=== PATIENT | male | born 1960 | race American Indian/Alaskan Native ===

== ENCOUNTER 2016-05-31 16:45 | Inpatient (IN) | payer BC ==
[2016-05-31] MEDS ORDERED: TYLENOL PO PRN (19:09)
[2016-05-31] MEDS ORDERED: SENOKOT PO PRN (19:09)
[2016-05-31] MEDS ORDERED: ULTRAM PO PRN (19:13)
[2016-05-31] MEDS: TRENTAL PO SCH (21:51)
[2016-05-31] MEDS: RANEXA ER PO SCH (21:51)
[2016-05-31] MEDS: BIDIL 20/37.5MG PO SCH (21:51)
[2016-05-31] MEDS: ZESTRIL PO SCH (21:52)
[2016-05-31] MEDS: LOPRESSOR PO SCH (21:52)
[2016-05-31] MEDS: MS CONTIN ER PO SCH (21:53)
[2016-06-01] MEDS: NORCO 10/325 PO PRN ×2 (01:38→08:27)
[2016-06-01 04:52] LABS: Basophils % (Auto) 0.7 % (0.0-1.8); Eosinophils % (Auto) 0.8 % (0.0-4.3); Hematocrit 28.7 % (35.5-45.6); Hemoglobin 9.3 gm/dl (11.8-15.2); Mean Corpuscular HGB Conc 33 % (32-34); Mean Corpuscular Hemoglobin 28 pg (28-32); Mean Corpuscular Volume 86 fl (84-94); Platelet Count 359 K/mm3 (140-440); Red Blood Count 3.35 M/mm3 (3.65-5.03); Red Cell Distribution Width 16.8 % (13.2-15.2); White Blood Count 11.1 K/mm3 (4.5-11.0)
[2016-06-01 05:06] LABS: Alanine Aminotransferase 72 units/L (7-56); Albumin 2.3 g/dL (3.9-5); Albumin/Globulin Ratio 0.7 %; Alkaline Phosphatase 74 units/L (35-129); Bilirubin,Total 0.2 mg/dL (0.1-1.2); Blood Urea Nitrogen 18 mg/dL (9-20); Calcium 8.3 mg/dL (8.4-10.2); Carbon Dioxide 27 mmol/L (22-30); Chloride 101.9 mmol/L (98-107); Glucose 126 mg/dL (75-100); Potassium 4.6 mmol/L (3.6-5.0); Sodium 140 mmol/L (137-145); Total Protein 5.5 g/dL (6.3-8.2)
[2016-06-01 05:11] LABS: Anion Gap 16 mmol/L
[2016-06-01] MEDS: BIDIL 20/37.5MG PO SCH ×3 (06:40→21:15)
[2016-06-01] MEDS: LASIX PO SCH (06:40)
[2016-06-01] MEDS: TRENTAL PO SCH ×3 (06:58→21:14)
[2016-06-01] MEDS ORDERED: XARELTO PO SCH (08:00)
[2016-06-01] MEDS ORDERED: BABY ASPIRIN PO SCH (08:00)
[2016-06-01] MEDS: EFFIENT PO SCH (08:29)
[2016-06-01] MEDS: RANEXA ER PO SCH ×2 (08:30→21:14)
[2016-06-01] MEDS: ZESTRIL PO SCH (08:37)
[2016-06-01] MEDS: LOPRESSOR PO SCH (08:38)
[2016-06-01] MEDS: MS CONTIN ER PO SCH ×2 (09:00→21:14)
[2016-06-01] MEDS: XARELTO PO SCH (09:00)
--- NOTE | 2016-06-01 10:02 | History and Physical Report ---
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 In comparison, pt reports improved phantom pain/sensation at right residual limb. Labs reviewed; slight drop in H/H and minimal leukocytosis; will follow. Pt also with asymptomatic hypotension on this AM; BP meds held. Will consult Cardiology for med adjustments and follow BP closely. Pt reports that he has not had a bowel movement in 2 weeks; will add aggressive bowel program. Pt remains an appropriate candidate for IPR course. PREVIOUS FUNCTIONAL STATUS: Independent with ADLs, gait, transfers; occasionally utilized a cane CURRENT FUNCTIONAL STATUS: Chace for transfers; modA for toileting; Independent to supervision for remaining ADLs HPI 55 y.o. male who presented to [facility] secondary to right leg pain. Pt with recent history of removal of arterial clot in right leg 4 days prior to presentation to ED. Pt was sent for CT during initial ED work-up and became short of breath requiring BiPAP, ICU admission; noted pulmonary edema on CXR. CT angio showed occlusion of proximal left anterior tibial artery with proximal occlusion of the left peroneal artery; 60% stenosis of common femoral artery, 50 % stenosis of left popliteal artery. Pt was recommended for right AKA (05/26/2016 ) due to right arterial occlusion with dry gangrene. Acute care course notable post-op for ongoing management of respiratory failure, post-op blood loss anemia , acute on chronic systolic heart failure, CAD, hypertension. Pt was seen and evaluated by therapies and noted to have functional decline with self cares and mobility. Pt is now admitted to [facility] for aggressive therapies and ongoing medical management. Past History Past Medical History: CAD (h/o [place]), hypertension, hyperlipidemia, PVD Past Surgical History: Other (pacemaker, right AKA) Social history: Lives alone, smoking. denies: alcohol abuse Family history: diabetes, hypertension Medications and Allergies Allergies Allergy/AdvReac Type Severity Reaction Status Date / Time No Known Allergies Allergy Unverified 05/31/16 18:27 Active Meds: Active Medications Acetaminophen (Tylenol) 650 mg PO Q4H PRN PRN Reason: Pain MILD(1-3)/Fever >100.5/JOHN Acetaminophen/Hydrocodone Bitart ([place] 10/325) 1 each PO Q6H PRN PRN Reason: Pain, Moderate (4-6) Last Admin: 06/01/16 08:27 Dose: 1 each Aspirin (Baby Aspirin) 81 mg PO QDAY [facility] Last Admin: 06/01/16 08:29 Dose: 81 mg Atorvastatin Calcium (Lipitor) 20 mg PO QHS [facility] Last Admin: 05/31/16 21:51 Dose: 20 mg Furosemide (Lasix) 40 mg PO QDAY@0600 [facility] Last Admin: 06/01/16 06:40 Dose: Not Given Isosorbide Dinitrate/Hydralazine (Bidil 20/37.5mg) 1 each PO Q8HR [facility] Last Admin: 06/01/16 06:40 Dose: Not Given Lisinopril (Zestril) 40 mg PO BID [facility] Last Admin: 06/01/16 08:37 Dose: Not Given Metoprolol Tartrate (Lopressor) 25 mg PO BID [facility] Last Admin: 06/01/16 08:38 Dose: Not Given Morphine Sulfate (Ms Contin Er) 15 mg PO Q12HR [facility] Last Admin: 06/01/16 09:00 Dose: 15 mg Pentoxifylline (Trental) 400 mg PO Q8HR [facility] Last Admin: 06/01/16 06:58 Dose: 400 mg Prasugrel (Effient) 10 mg PO QDAY [facility] Last Admin: 06/01/16 08:29 Dose: 10 mg Quetiapine Fumarate (Seroquel) 300 mg PO QHS [facility] Last Admin: 05/31/16 21:51 Dose: 300 mg Ranolazine (Ranexa Er) 1,000 mg PO BID [facility] Last Admin: 06/01/16 08:30 Dose: 1,000 mg Rivaroxaban (Xarelto) 20 mg PO QDDIAB [facility] PRN Reason: Protocol Last Admin: 06/01/16 09:00 Dose: 20 mg Senna (Senokot) 8.6 mg PO Q12H PRN PRN Reason: Laxative Effect Last Admin: 05/31/16 21:51 Dose: 8.6 mg Tramadol HCl (Ultram) 50 mg PO Q6H PRN PRN Reason: Pain, Moderate (4-6) Review of Systems All systems: negative Ears, nose, mouth and throat: no headache Cardiovascular: no chest pain, no lightheadedness Respiratory: no cough, no shortness of breath Gastrointestinal: constipation, no nausea, no vomiting Genitourinary Male: no dysuria Musculoskeletal: other (post-op pain intermittent at right residual limb) Exam - Constitutional Vitals: Vital Signs - 12hr 05/31/16 06/01/16 06/01/16 22:00 06:40 08:25 Temperature 98.2 F Pulse Rate 78 Pulse Rate [ 88 Left Brachial] Respiratory 18 18 Rate Blood Pressure 80/50 Blood Pressure 90/54 [Left Arm] O2 Sat by Pulse 96 99 Oximetry 06/01/16 06/01/16 08:37 08:38 Temperature Pulse Rate 88 88 Pulse Rate [ Left Brachial] Respiratory Rate Blood Pressure 90/54 90/54 Blood Pressure [Left Arm] O2 Sat by Pulse Oximetry General appearance: no acute distress, well-nourished - EENT Eyes: EOM intact ENT: hearing intact - Neck Neck: supple, normal ROM - Respiratory Respiratory effort: normal Respiratory: bilateral: CTA - Cardiovascular Rhythm: regular Heart Sounds: Present: S1 & S2 - Extremities Extremity abnormal: other (ho to right residual limb; no active drainage; incision healing well) - Gastrointestinal General gastrointestinal: Present: soft, non-tender, non-distended, normal bowel sounds - Musculoskeletal Musculoskeletal: strength equal bilaterally (with good hip flexion at right) - Neurologic Neurologic: CNII-XII intact, moves all extremities, other (sensation grossly intact) - Psychiatric Psychiatric: appropriate mood/affect, intact judgment & insight, memory intact, cooperative - Allied health notes FIMS assesment as documented by PT/OT/ST: Grooming Patient cleans teeth/dentures: Yes Patient zaman/brushes hair: Yes Patient washes, rinses and Yes dries face: Patient washes, rinses and Yes dries hands: Patient performs (no make-up/ /4 (100%) shaving): Grooming FIM Score 6. Modified [place] Toileting Toileting Device Urinal,Commode over Toilet Toileting FIM Score 3. Moderate Assistance Social interaction/Memory/Problem solving Social Interaction FIM Score 7. Complete [place] Memory FIM Score 6. Modified [place] Problem Solving FIM Score 6. Modified [place] Transfers Mode of Locomotion: Wheelchair Bed/Chair/Wheelchair Transfers 4. Minimal Assistance FIM Score Toilet Transfers FIM Score 4. Minimal Assistance Patient transferred to: Shower Shower Transfers FIM Score 4. Minimal Assistance Eating Eating FIM Score 7. Complete [place] Dressing-Upper body Patient retrieves clothing No items: Upper Body Dressing FIM Score 5. Supervision Dressing-lower body Patient retrieves clothing No items: Lower Body Dressing FIM Score 4. Minimal Assistance - Labs CBC & Chem 7: 06/01/16 04:43 06/01/16 04:43 Labs: Laboratory Results - last 72 hr 06/01/16 06/01/16 04:43 04:43 WBC 11.1 H RBC 3.35 L Hgb 9.3 L Hct 28.7 L MCV 86 MCH 28 MCHC 33 RDW 16.8 H Plt Count 359 Lymph % (Auto) 14.6 [place] % (Auto) 6.4 Eos % (Auto) 0.8 Baso % (Auto) 0.7 Lymph # 1.6 [place] # 0.7 Eos # 0.1 Baso # 0.1 Seg Neutrophils % 77.5 H Seg Neutrophils # 8.6 H Sodium 140 Potassium 4.6 Chloride 101.9 Carbon Dioxide 27 Anion Gap 16 BUN 18 Creatinine 0.9 Estimated GFR > 60 BUN/Creatinine Ratio 20.00 Glucose 126 H Calcium 8.3 L Total Bilirubin 0.2 AST 48 H ALT 72 H Alkaline Phosphatase 74 Total Protein 5.5 L Albumin 2.3 L Albumin/Globulin Ratio 0.7 Assessment and Plan Assessment and plan: 55 y.o. male with history of PVD acute on chronic occlusion of [place] arteries, now s/p right AKA. Pt also s/p acute on chronic heart failure exacerbation. The patient is medically stable, however, requires ongoing medical management. Pt is appropriate for inpatient rehabilitation admission and is thought to be able to tolerate at least 3 hours of therapy a day, 5 days a week including 1.5 hours of physical therapy and 1.5 hours of occupational therapy. Patient is able to understand and follow basic directions and has attainable rehab goals. Potential barriers/complications include infection, wound dehiscence, falls, phantom pain, respiratory failure, syncope, hypotension, DVT, PE, depression, N/ V, ileus, bleeding. Plan 1. Rehabilitation- Pt will undergo multidisciplinary/integrative rehab PT/OT, Nursing. Areas to be addressed include, but are not limited to PT for mobility , strengthening, transfer training, ROM, endurance, stairs, balance; OT for ADLs , household tasks, adaptive equipment; Nursing for carryover of therapies, pain control, education, skin integrity, medication management, bowel/bladder management; Nutrition as needed; senior professional services consultant for discharge planning and equipment needs. Potential interventions include appropriate assistive device or adaptive equipment. Expected overall level of functional improvement by discharge is [place] for ADLs and transfers; supervision to [place] for short distances with RW; [place] for wheelchair mobility. Pt will tentatively be discharged home with outpatient PT. Estimated length of stay is 7-10 days. 2. s/p right AKA- continue wound care; wound care consult placed for general evaluation, noted mild discoloration at left inferior incision line. Will continue to monitor for phantom pain; continue current pain regimen 3. CAD/CHF- Cardiology consulted for med management/med adjustments due to hypotension on today 4. acute blood loss anemia- follow 5. leukocytosis- follow; pt remains afebrile; incision line is without any s/s of infection; recheck labs later in week 6. DVT px- on Xarelto per Vascular - Patient Problems (1) History of right above knee amputation Current Visit: Yes Status: Acute (2) Peripheral vascular occlusive disease Current Visit: Yes Status: Acute (3) CAD (coronary artery disease) Current Visit: Yes Status: Acute Qualifiers: Coronary Disease-Associated Artery/Lesion type: tun[place]-bil[place] artery [place] vs. transplanted heart: [place]-bil[place] heart Associated angina: with stable angina Qualified Code(s): I25.118 - Atherosclerotic heart disease of [place]bil[place] coronary artery with other forms of angina pectoris (4) Systolic heart failure Current Visit: Yes Status: Acute Qualifiers: Heart failure chronicity: acute on chronic Qualified Code(s): I50.23 - Acute on chronic systolic (congestive) heart failure (5) Acute blood loss anemia Current Visit: Yes Status: Acute
[2016-06-01] MEDS: COLACE PO SCH ×2 (12:59→21:14)
--- NOTE | 2016-06-01 16:02 | Consultation ---
Addendum entered and electronically signed by ROMAN SOTO MD 06/01/16 19:21 : The patient is a 55-year-old man is in the rehabilitation unit following right above-knee amputation at another hospital. Consultation is requested at this time for further evaluation of low normal blood pressure readings of 90 systolic. On his medical regimen, he is lisinopril at doses of 40 mg twice a day, isosorbide hydralazine combination, and metoprolol. In addition to his vascular disease, he has coronary artery artery disease and a severe ischemic cardiomyopathy. Recent echocardiogram at the previous hospital reported a left ventricular ejection fraction 10-15%. He has an indwelling cardiac defibrillator, but we do not have details of any prior ischemic cardiac workup or coronary artery disease revascularization. He, he is awake and alert, comfortably his room, no cardiac symptoms, no chest pain, no shortness of breath palpitations and no extremity edema. Recommendations: Will reduce lisinopril dose to 5 mg daily. Continue isosorbide and hydralazine combination current doses. Switch metoprolol to carvedilol for cardiomyopathy treatment. Otherwise, conservative cardiac management of his coronary artery disease, cardiomyopathy and chronic systolic heart failure. Original Note: History of Present Illness Consult date: 06/01/16 Consult reason: congestive heart failure, hypotension History of present illness: This is a 55yr old male with has a history of PVD and was seen at [facility] right leg pain. Ultimately the patient was recommended for right AKA due to right arterial occlusion with dry gangrene. He is on xarelto for anticoagulation. Patient is now admitted for inpatient rehab for aggressive management. Cardiac consultation requested for CHF and asymptomatic hypotension. Noted to be on several BP lowering medications. Patient reports a history of CHF and is followed by a traffic recorder in [facility]. There is also an AICD in place. It is unclear if there is a history of coronary disease as the patient is reluctant to give additional medical history. Review of records shows a recent echocardiogram done at [place] that reports an ejection fraction 10-15%. There is no ECG available for review. Past History Past Medical History: CAD (h/o [place]), hypertension, hyperlipidemia, PVD Past Surgical History: Other (pacemaker, right AKA) Social history: Lives alone, smoking. denies: alcohol abuse Family history: diabetes, hypertension Medications and Allergies Allergies Allergy/AdvReac Type Severity Reaction Status Date / Time No Known Allergies Allergy Unverified 05/31/16 18:27 Active Meds: Active Medications Acetaminophen (Tylenol) 650 mg PO Q4H PRN PRN Reason: Pain MILD(1-3)/Fever >100.5/JOHN Acetaminophen/Hydrocodone Bitart ([place] 10/325) 1 each PO Q6H PRN PRN Reason: Pain, Moderate (4-6) Last Admin: 06/01/16 08:27 Dose: 1 each Aspirin (Baby Aspirin) 81 mg PO QDAY [facility] Last Admin: 06/01/16 08:29 Dose: 81 mg Atorvastatin Calcium (Lipitor) 20 mg PO QHS [facility] Last Admin: 05/31/16 21:51 Dose: 20 mg Docusate Sodium (Colace) 100 mg PO BID [facility] Last Admin: 06/01/16 12:59 Dose: 100 mg Furosemide (Lasix) 40 mg PO QDAY@0600 [facility] Last Admin: 06/01/16 06:40 Dose: Not Given Isosorbide Dinitrate/Hydralazine (Bidil 20/37.5mg) 1 each PO Q8HR [facility] Last Admin: 06/01/16 12:59 Dose: Not Given Lisinopril (Zestril) 40 mg PO BID [facility] Last Admin: 06/01/16 08:37 Dose: Not Given Metoprolol Tartrate (Lopressor) 25 mg PO BID [facility] Last Admin: 06/01/16 08:38 Dose: Not Given Morphine Sulfate (Ms Contin Er) 15 mg PO Q12HR [facility] Last Admin: 06/01/16 09:00 Dose: 15 mg Pentoxifylline (Trental) 400 mg PO Q8HR [facility] Last Admin: 06/01/16 13:03 Dose: 400 mg Prasugrel (Effient) 10 mg PO QDAY [facility] Last Admin: 06/01/16 08:29 Dose: 10 mg Quetiapine Fumarate (Seroquel) 300 mg PO QHS [facility] Last Admin: 05/31/16 21:51 Dose: 300 mg Ranolazine (Ranexa Er) 1,000 mg PO BID [facility] Last Admin: 06/01/16 08:30 Dose: 1,000 mg Rivaroxaban (Xarelto) 20 mg PO QDDIAB [facility] PRN Reason: Protocol Last Admin: 06/01/16 09:00 Dose: 20 mg Senna (Senokot) 8.6 mg PO QHS [facility] Tramadol HCl (Ultram) 50 mg PO Q6H PRN PRN Reason: Pain, Moderate (4-6) Physical Examination Vital Signs Temp Pulse Resp BP Pulse Ox 97.4 F L 66 18 121/71 98 05/31/16 17:43 05/31/16 17:43 05/31/16 17:43 05/31/16 17:43 05/31/16 17:43 General appearance: no acute distress HEENT: Positive: PERRL Neck: Positive: trachea midline Cardiac: Positive: Reg Rate and Rhythm Lungs: Positive: Decreased Breath Sounds Results 06/01/16 04:43 06/01/16 04:43 Cardiac Enzymes 06/01/16 Range/Units 04:43 AST 48 H (5-40) units/L CBC 06/01/16 Range/Units 04:43 WBC 11.1 H (4.5-11.0) K/mm3 RBC 3.35 L (3.65-5.03) M/mm3 Hgb 9.3 L (11.8-15.2) gm/dl Hct 28.7 L (35.5-45.6) % Plt Count 359 (140-440) K/mm3 Lymph # 1.6 (1.2-5.4) K/mm3 [place] # 0.7 (0.0-0.8) K/mm3 Eos # 0.1 (0.0-0.4) K/mm3 Baso # 0.1 (0.0-0.1) K/mm3 Comprehensive Metabolic Panel 06/01/16 Range/Units 04:43 Sodium 140 (137-145) mmol/L Potassium 4.6 (3.6-5.0) mmol/L Chloride 101.9 (98-107) mmol/L Carbon Dioxide 27 (22-30) mmol/L BUN 18 (9-20) mg/dL Creatinine 0.9 (0.8-1.5) mg/dL Glucose 126 H (75-100) mg/dL Calcium 8.3 L (8.4-10.2) mg/dL AST 48 H (5-40) units/L ALT 72 H (7-56) units/L Alkaline Phosphatase 74 (35-129) units/L Total Protein 5.5 L (6.3-8.2) g/dL Albumin 2.3 L (3.9-5) g/dL EKG interpretations - Telemetry EKG Rhythm: Sinus Rhythm Assessment and Plan PVD s/p right AKA on xarelto Hypotension, pt asymptomatic Hx of Cardiomyopathy Presence of an AICD
[2016-06-01] MEDS: SENOKOT PO SCH (20:30)
[2016-06-01] MEDS: COREG PO SCH (21:15)
[2016-06-02] MEDS: TRENTAL PO SCH ×3 (05:32→21:14)
[2016-06-02] MEDS: LASIX PO SCH (05:32)
[2016-06-02] MEDS: NORCO 10/325 PO PRN ×2 (05:35→13:58)
[2016-06-02] MEDS: BIDIL 20/37.5MG PO SCH (05:46)
[2016-06-02] MEDS ORDERED: ZESTRIL PO SCH (08:00)
[2016-06-02] MEDS: XARELTO PO SCH (08:49)
[2016-06-02] MEDS: EFFIENT PO SCH (08:49)
[2016-06-02] MEDS: RANEXA ER PO SCH ×2 (08:50→21:14)
[2016-06-02] MEDS: K-DUR PO SCH (08:50)
[2016-06-02] MEDS: COLACE PO SCH ×2 (08:50→21:16)
[2016-06-02] MEDS: COREG PO SCH ×2 (08:51→21:16)
--- NOTE | 2016-06-02 09:22 | Progress Note ---
Assessment and Plan PVD s/p right AKA on xarelto Hypotension -resolved Hx of Cardiomyopathy Presence of an AICD Anemia Subjective Date of service: 06/02/16 Interval history: Patient sitting up in bed. He has no chest pain or shortness of breath. BP low normal at 102/68; morning BP medications held by nurse. Objective Vital Signs Temp Pulse Pulse Resp BP BP Pulse Ox 06/02/16 08:51 84 102/68 06/02/16 05:46 100/60 06/01/16 21:15 90 90/60 06/01/16 19:00 98.0 F 90 20 94/60 99 06/01/16 17:55 98.1 F 85 18 84/61 98 06/01/16 12:59 90 90/54 06/01/16 10:00 99 - Physical Examination General: No Apparent Distress HEENT: Positive: PERRL Neck: Positive: trachea midline Cardiac: Positive: Reg Rate and Rhythm Lungs: Positive: Decreased Breath Sounds Extremities: Present: Other (right AKA)
[2016-06-02] MEDS: MS CONTIN ER PO SCH ×2 (09:28→21:15)
--- NOTE | 2016-06-02 13:23 | IRU Plan of Care ---
Interdisciplinary Plan of Care - IP IRU INTERDISCIPLINARY PLAN: [facility] Inpatient Rehab Unit Plan of Care IRU Interdisciplinary Care Plan Start: 05/31/16 17: 43 Freq: Admission then PRN Status: Active Document 06/01/16 15:43 DB (Rec: 06/01/16 15:49 DB [id number]) Interdisciplinary Problem List Interdisciplinary Problem List Interdisciplinary Problem List Impaired Bathing/Grooming Query Text:Answers will Trigger Problems Impaired Dressing and Outcomes on Worklist. Impaired Mobility Impaired Transfers Impaired Toileting Impaired Nutrition Pain Management Knowledge Deficits Impaired Skin/Tissue Integrity Impaired Home Management Impaired Safety Medications Education Impaired Cardiovascular System IRU Interdisciplinary Care Plan Therapy Services Therapy Services Will Include: Physical Therapy Query Text:Patient will be seen for a Occupational Therapy minimum of 3 hours of daily therapy 5 out of 7 days a week. Therapy intensity may be adjusted within a 7 consecutive day period to effectively serve the individual needs of the patient. Treatment Frequency/Intensity/Duration Treatment Frequency 5 days per week Treatment Intensity 1.5 hours per discipline (PT and OT) daily Treatment Duration 10-14 days Problem Area: Eating/Swallowing Eating/Swallowing Outcomes Eating/Swallowing Interventions Problem Area: Bathing/Grooming Bathing/Grooming Outcomes Improve [place] w/ Bathing Bathing/Grooming Interventions ADL Training Use of Assistive Devices Therapeutic Exercise Therapeutic Activity Balance Work Activity Tolerance Work Patient/Caregiver Education Problem Area: Dressing Dressing Outcomes Improve [place] w/ LB Dressing Dressing Interventions ADL Training Use of Assistive Devices Therapeutic Exercise Balance Work Patient/Caregiver Education Problem Area: Mobility Mobility Outcomes Improve [place] w/ Bed Mobility Improve [place] w/ Ambulation Improve [place] w/ Stairs /Curb Improve [place] w/ Wheelchair Mobility Interventions Therapeutic Exercise Neuromuscular Re-Ed. Modalities Use of Assistive Devices Patient/Caregiver Education Bed Mobility Work Gait Training W/C Mobility Work Problem Area: Transfers Transfers Outcomes Improve [place] w/ Bed Transfers Improve [place] w/ Toilet Transfers Improve [place] w/ Tub/ Shower Transfers Improve [place] w/ Car Transfers Transfers Interventions Transfer Training Therapeutic Exercise Neuromuscular Re-Education Activity Tolerance Work Modalities Use of Assistive Devices Patient/Caregiver Education Problem Area: Bowel/Bladder Managment Bowel/Bladder Outcomes Bowel/Bladder Interventions Problem Area: Toileting Toileting Outcomes Improve [place] w/ Toileting Toileting Interventions ADL Training Balance Work Use of Assistive Devices Patient/Caregiver Education Problem Area: Nutrition Nutrition Outcomes Improve/Maintain Protein Status Improve/Maintain Oral Intake Improve/Maintain Weight Status Nutrition Interventions Nutritional Counseling Monitor Nutrient Intake Patient/Caregiver Education Problem Area: Comprehension Comprehension Outcomes Comprehension Interventions Problem Area: Expression Expression Outcomes Expression Interventions Problem Area: Problem Solving Problem Solving Outcomes Problem Solving Interventions Problem Area: Memory Memory Outcomes Memory Interventions Problem Area: Pain Management Pain Management Outcomes Demonstrate/Verbalize Pain Strategies Pain Management Interventions Medication Management Positioning/Turning Patient/Caregiver Education Problem Area: Knowledge Deficits Knowledge Deficits Outcomes Verbalize Precautions Knowledge Deficits Interventions Disease/Injury/Sx. Intervention Education Medication Use Education Disease Management Education Health Maintainence Education Safety Education Problem Area: Skin/Tissue Integrity Skin/Tissue Integrity Outcomes Exhibit Healing of Wound/ Incision Demonstrate Understanding of Pressure Relief Skin/Tissue Integrity Interventions Skin/Wound Care Pressure Relief Instruction Problem Area: Social Interaction Social Interaction Outcomes Social Interaction Interventions Problem Area: Adjustment to Disability Adjustment to Disability Outcomes Adjustment to Disability Interventions Problem Area: Discharge Concerns Discharge Concerns Outcomes Discharge Home w/ Necessary Equipment Have Home Health/Outpatient Services Discharge Concerns Interventions Discharge Planning Family/Caregiver Conference Family/Caregiver Training Problem Area: Community Reintegration Community Reintegration Outcomes Demonstrate Understanding of Community Resources Community Reintegration Interventions Provide Community Resources Problem Area: Home Management Home Management Outcomes Improve [place] w/ Home Management Home Management Interventions Meal Preparation Clothing Care Activity Tolerance Work House Cleaning Patient/Caregiver Education Problem Area: Safety Safety Outcomes Provide Safe Environment Perform Selfcare Safely Demonstrate Good Safety w/ Transfers/Mobility Safety Interventions Identify Fall Risk [place] Pt. to Environment Reduce Environmental Hazards Problem Area: Medication Education Medication Education Outcomes Patient/Caregiver will Verbalize Understanding of Medications Medication Education Interventions Explain Administration/Side Effects/Interactions Problem Area: Diabetes Education Diabetes Education Outcomes Diabetes Education Interventions Problem Area: Oxygenation Oxygenation Outcomes Oxygenation Interventions Problem Area: Cardiovascular Cardiovascular Outcomes Maintain or Improve Cardiovascular Status Cardiovascular Interventions Assess Vital Signs at least Every 4 hours Physician Only Medical Prognosis and Rehabilitation Patient demonstrates good Potential (Completed by Physician) rehab potential. Medical Prognosis: Good This plan of care has been developed based on the findings from the pre- admission assessment, post admission physician evaluation, information gathered from the assessments from all therapy disciplines and other pertinent clinicians. The plan of care has been reviewed and discussed in collaboration with the interdisciplinary team. The plan of care will be reviewed and updated at least weekly. 55 y.o. male with history of PVD, acute on chronic occlusion of [place] arteries , now s/p right AKA; acute care course also notable for treatment for acute on chronic heart failure exacerbation. The patient remains at risk for infection, wound dehiscence, falls, phantom pain, respiratory failure, syncope, hypotension , DVT, PE, depression, N/V, ileus, bleeding. Continue aggressive bowel regimen ; will add suppository on this evening. Cardiology following and adjusting medications due to symptomatic hypotension. Will continue to follow labs ( leukocytosis and anemia); ongoing wound monitoring. Pt is tolerating therapies ; remains an appropriate candidate for IPR course.
--- NOTE | 2016-06-02 13:30 | Progress Note ---
Assessment and Plan 55 y.o. male s/p right AKA - s/p right AKA- continue wound care; stable on pain regimen - unsteady gait- Chace/CGA for ambulation with RW; some dizziness noted; follow - CAD/CHF- appreciate Cardiology consult; med changes noted; continue to follow - orthostatic hypotension- continue to follow - acute blood loss anemia- recheck labs later in week - constipation- add dulcoloax suppository; continue colace and senna - DVT px- on Xarelto per Vascular - Patient Problems (1) History of right above knee amputation Current Visit: Yes Status: Acute (2) Peripheral vascular occlusive disease Current Visit: Yes Status: Acute (3) CAD (coronary artery disease) Current Visit: Yes Status: Acute Qualifiers: Coronary Disease-Associated Artery/Lesion type: [place] artery [place] vs. transplanted heart: [place] heart Associated angina: with stable angina Qualified Code(s): I25.118 - Atherosclerotic heart disease of [place] coronary artery with other forms of angina pectoris (4) Systolic heart failure Current Visit: Yes Status: Acute Qualifiers: Heart failure chronicity: acute on chronic Qualified Code(s): I50.23 - Acute on chronic systolic (congestive) heart failure (5) Constipation by delayed colonic transit Current Visit: Yes Status: Acute Subjective Date of service: 06/02/16 Principal diagnosis: right AKA Interval history: Pt seen in room this AM, F/U IPR course s/p right AKA. Pt reports pain is well controlled; still no BM. Agrees to adding suppository Objective - Constitutional Vitals: Vital Signs - 12hr 06/02/16 06/02/16 06/02/16 05:46 08:00 08:51 Temperature 97.6 F Pulse Rate 84 Pulse Rate [ 84 Left Brachial] Respiratory 20 Rate Blood Pressure 100/60 102/68 Blood Pressure 102/68 [Left Arm] O2 Sat by Pulse 100 Oximetry General appearance: Present: no acute distress - EENT Eyes: EOM intact ENT: hearing intact - Neck Neck: supple, normal ROM - Respiratory Respiratory effort: normal Extremity abnormal: other (incision open to air, no drainage; ho remain intact) - Gastrointestinal General gastrointestinal: Present: soft, non-tender, non-distended - Neurologic Neurologic: CNII-XII intact, moves all extremities - Psychiatric Psychiatric: appropriate mood/affect, intact judgment & insight, memory intact, cooperative - Allied health notes Allied health notes reviewed: PT (Chace/CGA for transfers and gait; supervision/ SBA for bed mobility), OT (Lindsay to modA for ADLs) - Labs CBC & Chem 7: 06/01/16 04:43 06/01/16 04:43
[2016-06-02] MEDS ORDERED: DULCOLAX PR SCH (21:00)
[2016-06-02] MEDS: SENOKOT PO SCH (21:17)
[2016-06-03] MEDS: NORCO 10/325 PO PRN ×2 (05:15→15:22)
[2016-06-03] MEDS: TRENTAL PO SCH ×3 (06:46→22:14)
[2016-06-03] MEDS: LASIX PO SCH (06:46)
[2016-06-03] MEDS: ZESTRIL PO SCH ×2 (08:00→09:02)
[2016-06-03] MEDS: EFFIENT PO SCH (08:50)
[2016-06-03] MEDS: COLACE PO SCH ×2 (08:50→22:14)
[2016-06-03] MEDS: COREG PO SCH ×2 (08:51→22:15)
[2016-06-03] MEDS: K-DUR PO SCH (08:51)
[2016-06-03] MEDS: XARELTO PO SCH (08:51)
[2016-06-03] MEDS: MS CONTIN ER PO SCH ×3 (08:52→22:16)
[2016-06-03] MEDS: RANEXA ER PO SCH ×2 (09:01→22:15)
[2016-06-03] MEDS ORDERED: DULCOLAX PR PRN (12:51)
--- NOTE | 2016-06-03 14:08 | Progress Note ---
Addendum entered and electronically signed by ROMAN SOTO MD 06/03/16 15:31 : Stable, continue medical therapy for coronary disease and ischemic cardiomyopathy. Original Note: Assessment and Plan PVD s/p right AKA on xarelto Hypotension -resolved Hx of Ischemic Cardiomyopathy Hx of CAD per patient Presence of an AICD Anemia Continue afterload reduction and beta eben therapy for ischemic cardiomyopathy. Subjective Date of service: 06/03/16 Principal diagnosis: right AKA Interval history: No interval changes. Stable current BP of 118/74. Objective Vital Signs Temp Pulse Pulse Pulse Resp Resp BP 06/03/16 08:51 91 H 118/74 06/03/16 08:00 98.4 F 78 78 18 100/57 06/03/16 06:15 20 06/03/16 05:23 84 22 06/03/16 05:15 22 06/02/16 22:00 82 18 06/02/16 21:15 18 06/02/16 20:00 97.8 F 81 18 06/02/16 16:00 97.3 F L 80 20 BP Pulse Ox 06/03/16 08:51 06/03/16 08:00 100/57 98 06/03/16 06:15 06/03/16 05:23 102/62 06/03/16 05:15 06/02/16 22:00 06/02/16 21:15 06/02/16 20:00 98/64 99 06/02/16 16:00 94/62 100 - Physical Examination General: No Apparent Distress HEENT: Positive: PERRL Neck: Positive: trachea midline Cardiac: Positive: Reg Rate and Rhythm Lungs: Positive: Decreased Breath Sounds Extremities: Present: Other (right AKA)
--- NOTE | 2016-06-03 15:10 | Progress Note ---
Assessment and Plan 55 y.o. male s/p right AKA - s/p right AKA- follow wound; stable on pain regimen - unsteady gait- modA for 110 feet; CGA-modA for transfers - CAD/CHF- Cardiology following - orthostatic hypotension- improved on today; no reports of dizziness, improved blood pressure - acute blood loss anemia- CBC ordered for tomorrow - constipation- resolved; will continue Colace BID and Senna QHS for bowel regimen - DVT px- on Xarelto per Vascular - team conference held on this AM- pt is Lindsay for eating, grooming, UB dressing ; SBA for bathing; Chace for LB dressing and shower transfers; min-modA for toileting and toileting transfers; CGA for bed mobility, sit/stand transfers, wheelchair mobility; modA for gait. Barriers- decreased balance, ?cognition, endurance. Tentative d/c home on 06/11/16. - Patient Problems (1) History of right above knee amputation Current Visit: Yes Status: Acute (2) Peripheral vascular occlusive disease Current Visit: Yes Status: Acute (3) CAD (coronary artery disease) Current Visit: Yes Status: Acute Qualifiers: Coronary Disease-Associated Artery/Lesion type: [place] artery [place] vs. transplanted heart: [place] heart Associated angina: with stable angina Qualified Code(s): I25.118 - Atherosclerotic heart disease of [place] coronary artery with other forms of angina pectoris (4) Systolic heart failure Current Visit: Yes Status: Acute Qualifiers: Heart failure chronicity: acute on chronic Qualified Code(s): I50.23 - Acute on chronic systolic (congestive) heart failure (5) Unsteady gait Current Visit: Yes Status: Acute Subjective Date of service: 06/03/16 Principal diagnosis: right AKA Interval history: Pt seen in gym with PT this AM, F/U IPR course s/p right AKA. +BM overnight. Pt noted to have some memory deficits noted with OT; will get SC[employer] cogntive screen Objective - Constitutional Vitals: Vital Signs - 12hr 06/03/16 06/03/16 06/03/16 05:15 05:23 06:15 Temperature Pulse Rate Pulse Rate [ 84 Apical] Pulse Rate [ Left Brachial] Respiratory 22 22 20 Rate Blood Pressure Blood Pressure 102/62 [Left Arm] O2 Sat by Pulse Oximetry 06/03/16 06/03/16 08:00 08:51 Temperature 98.4 F Pulse Rate 78 91 H Pulse Rate [ Apical] Pulse Rate [ 78 Left Brachial] Respiratory 18 Rate Blood Pressure 100/57 118/74 Blood Pressure 100/57 [Left Arm] O2 Sat by Pulse 98 Oximetry General appearance: Present: no acute distress - EENT Eyes: EOM intact ENT: hearing intact - Neck Neck: supple, normal ROM - Respiratory Respiratory effort: normal Extremity abnormal: other (wound open to air; no drainage, healing well) - Gastrointestinal General gastrointestinal: Present: soft, non-distended - Neurologic Neurologic: CNII-XII intact, moves all extremities - Psychiatric Psychiatric: appropriate mood/affect, cooperative - Labs CBC & Chem 7: 06/01/16 04:43 06/01/16 04:43
[2016-06-03] MEDS: SENOKOT PO SCH (22:15)
[2016-06-04 05:16] LABS: Hematocrit 28.8 % (35.5-45.6); Hemoglobin 9.5 gm/dl (11.8-15.2); Mean Corpuscular HGB Conc 33 % (32-34); Mean Corpuscular Hemoglobin 28 pg (28-32); Mean Corpuscular Volume 86 fl (84-94); Platelet Count 372 K/mm3 (140-440); Red Blood Count 3.35 M/mm3 (3.65-5.03); Red Cell Distribution Width 16.6 % (13.2-15.2)
[2016-06-04] MEDS: LASIX PO SCH (06:05)
[2016-06-04] MEDS: TRENTAL PO SCH ×3 (06:05→22:01)
[2016-06-04] MEDS: ZESTRIL PO SCH (08:30)
[2016-06-04] MEDS: COREG PO SCH ×2 (08:30→22:05)
--- NOTE | 2016-06-04 09:48 | Progress Note ---
Assessment and Plan PVD s/p right AKA on xarelto Hypotension -pt asymptomatic Hx of Ischemic Cardiomyopathy Hx of CAD per patient Presence of an AICD Anemia Continue afterload reduction and beta eben therapy for his CAD and ischemic cardiomyopathy. Subjective Date of service: 06/04/16 Principal diagnosis: right AKA Interval history: Patient has no cardiac complaints. Borderline low BP of 93/53 this morning. Patient remains asymptomatic Objective Vital Signs Temp Pulse Pulse Pulse Resp Resp BP 06/04/16 08:00 97.9 F 74 20 06/03/16 23:16 20 06/03/16 22:16 20 06/03/16 22:15 76 106/60 06/03/16 22:00 97.6 F 76 18 18 06/03/16 16:00 98.1 F 78 20 BP Pulse Ox 06/04/16 08:00 93/53 98 06/03/16 23:16 06/03/16 22:16 06/03/16 22:15 06/03/16 22:00 106/60 100 06/03/16 16:00 97/60 99 - Physical Examination General: No Apparent Distress HEENT: Positive: PERRL Neck: Positive: trachea midline Cardiac: Positive: Reg Rate and Rhythm Lungs: Positive: Decreased Breath Sounds Extremities: Present: Other (right AKA) - Labs and Meds CBC 06/04/16 Range/Units 04:17 WBC 5.0 (4.5-11.0) K/mm3 RBC 3.35 L (3.65-5.03) M/mm3 Hgb 9.5 L (11.8-15.2) gm/dl Hct 28.8 L (35.5-45.6) % Plt Count 372 (140-440) K/mm3
[2016-06-04] MEDS: XARELTO PO SCH (10:19)
[2016-06-04] MEDS: K-DUR PO SCH (10:19)
[2016-06-04] MEDS: RANEXA ER PO SCH ×2 (10:20→22:00)
[2016-06-04] MEDS: EFFIENT PO SCH (10:21)
[2016-06-04] MEDS: MS CONTIN ER PO SCH (10:22)
[2016-06-04] MEDS: COLACE PO SCH (10:23)
--- NOTE | 2016-06-04 12:38 | Progress Note ---
Assessment and Plan 55 y.o. male s/p right AKA - s/p right AKA- follow wound; agreed to weaning down of MS Contin; will follow pain levels - unsteady gait- progressing well; Lindsay with bed mobility; now supervision with sit-stand transfers; CGA for gait up to 110 feet with RW - CAD/CHF- Cardiology following; noted parameters added for meds - orthostatic hypotension- remains intermittent; continue to follow - acute blood loss anemia- stable - leukocytosis- resolved - DVT px- on Xarelto per Vascular - Patient Problems (1) History of right above knee amputation Current Visit: Yes Status: Acute (2) Peripheral vascular occlusive disease Current Visit: Yes Status: Acute (3) CAD (coronary artery disease) Current Visit: Yes Status: Acute Qualifiers: Coronary Disease-Associated Artery/Lesion type: [place] artery [place] vs. transplanted heart: [place] heart Associated angina: with stable angina Qualified Code(s): I25.118 - Atherosclerotic heart disease of [place] coronary artery with other forms of angina pectoris (4) Systolic heart failure Current Visit: Yes Status: Acute Qualifiers: Heart failure chronicity: acute on chronic Qualified Code(s): I50.23 - Acute on chronic systolic (congestive) heart failure (5) Unsteady gait Current Visit: Yes Status: Acute (6) Acute blood loss anemia Current Visit: Yes Status: Acute Subjective Date of service: 06/04/16 Principal diagnosis: right AKA Interval history: Pt seen in room this afternoon, F/U IPR course s/p right AKA. +BM overnight. Pt reported to be agitated due to [employer]OUNT[employer] that was ordered. No complaints reported during visit with patient on today Objective - Constitutional Vitals: Vital Signs - 12hr 06/04/16 06/04/16 06/04/16 08:00 08:30 10:22 Temperature 97.9 F Pulse Rate 74 Pulse Rate [ 74 Left Brachial] Respiratory 20 22 Rate Blood Pressure 93/53 Blood Pressure 93/53 [Left Arm] O2 Sat by Pulse 98 Oximetry General appearance: Present: no acute distress - EENT Eyes: EOM intact ENT: hearing intact - Neck Neck: supple, normal ROM - Respiratory Respiratory effort: normal Respiratory: bilateral: CTA - Cardiovascular Heart Sounds: Present: S1 & S2 - Gastrointestinal General gastrointestinal: Present: soft, non-tender, non-distended, normal bowel sounds - Neurologic Neurologic: CNII-XII intact, moves all extremities - Psychiatric Psychiatric: appropriate mood/affect, cooperative - Allied health notes Allied health notes reviewed: PT (supervision with transfers; CGA for gait), OT (close SBA for transfers) - Labs CBC & Chem 7: 06/04/16 04:17 06/01/16 04:43 Labs: Abnormal lab results 06/04/16 Range/Units 04:17 RBC 3.35 L (3.65-5.03) M/mm3 Hgb 9.5 L (11.8-15.2) gm/dl Hct 28.8 L (35.5-45.6) % RDW 16.6 H (13.2-15.2) %
[2016-06-04] MEDS: NORCO 10/325 PO PRN (15:25)
[2016-06-05] MEDS: NORCO 10/325 PO PRN (06:11)
[2016-06-05] MEDS: LASIX PO SCH (06:12)
[2016-06-05] MEDS: TRENTAL PO SCH ×3 (06:13→22:06)
[2016-06-05] MEDS: SENOKOT PO SCH ×2 (07:37→22:06)
[2016-06-05] MEDS: COLACE PO SCH ×3 (07:37→22:05)
[2016-06-05] MEDS ORDERED: MS CONTIN ER PO SCH (08:00)
[2016-06-05] MEDS: ZESTRIL PO SCH (08:26)
[2016-06-05] MEDS: COREG PO SCH ×2 (08:27→22:06)
[2016-06-05] MEDS: XARELTO PO SCH (09:05)
[2016-06-05] MEDS: RANEXA ER PO SCH ×2 (09:06→22:06)
[2016-06-05] MEDS: EFFIENT PO SCH (09:07)
[2016-06-05] MEDS: K-DUR PO SCH (09:08)
--- NOTE | 2016-06-05 09:56 | Progress Note ---
Assessment and Plan 1. Peripheral vascular disease status post right AKA 2. Coronary artery disease stable 3. Ischemic cardiomyopathy stable 4. Status post AICD Plan. Cardiac-graham stable continue present management. Subjective Date of service: 06/05/16 Principal diagnosis: right AKA Interval history: No cardiac symptoms. Objective Vital Signs Temp Pulse Pulse Pulse Resp Resp BP 06/05/16 08:27 76 92/58 06/05/16 08:26 76 92/58 06/05/16 08:00 98.2 F 76 20 06/04/16 22:05 82 98/66 06/04/16 19:00 96.9 F L 82 18 06/04/16 16:25 20 20 06/04/16 16:00 97.8 F 84 18 06/04/16 15:25 20 06/04/16 11:22 20 06/04/16 10:22 22 BP Pulse Ox 06/05/16 08:27 06/05/16 08:26 06/05/16 08:00 92/58 99 06/04/16 22:05 06/04/16 19:00 98/66 100 06/04/16 16:25 06/04/16 16:00 115/65 100 06/04/16 15:25 06/04/16 11:22 06/04/16 10:22 - Physical Examination General: No Apparent Distress HEENT: Positive: PERRL Neck: Positive: trachea midline Cardiac: Positive: Regular Rate, S1/S2, PMI, Laterally Displaced Lungs: Positive: clear to auscultation Neuro: Positive: Grossly Intact Abdomen: Positive: Soft, Active Bowel Sounds Extremities: Present: Other (right AKA). Absent: edema
[2016-06-06] MEDS: TRENTAL PO SCH ×3 (06:04→21:56)
[2016-06-06] MEDS: LASIX PO SCH (06:04)
[2016-06-06] MEDS: COREG PO SCH ×2 (08:37→21:59)
[2016-06-06] MEDS: XARELTO PO SCH (08:37)
[2016-06-06] MEDS: K-DUR PO SCH (08:38)
[2016-06-06] MEDS: RANEXA ER PO SCH ×2 (08:38→21:55)
[2016-06-06] MEDS: COLACE PO SCH ×2 (08:38→21:56)
[2016-06-06] MEDS: EFFIENT PO SCH (08:39)
[2016-06-06] MEDS: ZESTRIL PO SCH (08:39)
--- NOTE | 2016-06-06 11:55 | Progress Note ---
Assessment and Plan 1. Peripheral vascular disease status post right AKA 2. Coronary artery disease stable 3. Ischemic cardiomyopathy stable 4. Status post AICD Plan. Cardiac-graham stable continue present management. Subjective Date of service: 06/06/16 Principal diagnosis: right AKA Interval history: No cardiac symptoms. Objective Vital Signs Temp Pulse Pulse Pulse Resp BP BP 06/06/16 08:37 84 110/68 06/06/16 08:00 98.7 F 84 18 110/68 06/05/16 22:06 82 116/72 06/05/16 19:00 98.2 F 82 20 115/70 06/05/16 17:00 98.4 F 76 20 118/66 Pulse Ox 06/06/16 08:37 06/06/16 08:00 99 06/05/16 22:06 06/05/16 19:00 100 06/05/16 17:00 99 - Physical Examination General: No Apparent Distress HEENT: Positive: PERRL Neck: Positive: trachea midline Cardiac: Positive: Reg Rate and Rhythm, S1/S2, PMI, Laterally Displaced Lungs: Positive: clear to auscultation, No Wheeze, Rales, Rhonchi Neuro: Positive: Grossly Intact Abdomen: Positive: Soft, Active Bowel Sounds Skin: Positive: Clear Extremities: Present: Other (right AKA). Absent: edema
[2016-06-06] MEDS: SENOKOT PO SCH (21:56)
[2016-06-07] MEDS: NORCO 10/325 PO PRN (03:23)
[2016-06-07] MEDS: LASIX PO SCH (05:39)
[2016-06-07] MEDS: TRENTAL PO SCH ×3 (05:39→21:38)
[2016-06-07] MEDS: K-DUR PO SCH (08:59)
[2016-06-07] MEDS: EFFIENT PO SCH (08:59)
[2016-06-07] MEDS: XARELTO PO SCH (09:00)
[2016-06-07] MEDS: RANEXA ER PO SCH ×2 (09:00→21:37)
[2016-06-07] MEDS: ZESTRIL PO SCH (09:01)
[2016-06-07] MEDS: COREG PO SCH ×2 (09:01→21:41)
[2016-06-07] MEDS: COLACE PO SCH ×2 (09:02→21:38)
--- NOTE | 2016-06-07 13:05 | Progress Note ---
Assessment and Plan 55 y.o. male s/p right AKA - s/p right AKA- pain controlled off MS Contin, continue prn [place] - unsteady gait- tolerating therapies well; supervision for transfers and gait - CAD/CHF- Cardiology following; BP stable - orthostatic hypotension- resolved - DVT px- on Xarelto per Vascular - Patient Problems (1) History of right above knee amputation Current Visit: Yes Status: Acute (2) Peripheral vascular occlusive disease Current Visit: Yes Status: Acute (3) CAD (coronary artery disease) Current Visit: Yes Status: Acute Qualifiers: Coronary Disease-Associated Artery/Lesion type: [place] artery [place] vs. transplanted heart: [place] heart Associated angina: with stable angina Qualified Code(s): I25.118 - Atherosclerotic heart disease of [place] coronary artery with other forms of angina pectoris (4) Systolic heart failure Current Visit: Yes Status: Acute Qualifiers: Heart failure chronicity: acute on chronic Qualified Code(s): I50.23 - Acute on chronic systolic (congestive) heart failure (5) Unsteady gait Current Visit: Yes Status: Acute Subjective Date of service: 06/07/16 Principal diagnosis: right AKA Interval history: Pt seen with OT this AM, F/U IPR course s/p right AKA. Pt reports some discomfort at pacemaker site this AM; pain well controlled off MS Contin, rated 3/10 this AM Objective - Constitutional Vitals: Vital Signs - 12hr 06/07/16 06/07/16 07:59 09:01 Temperature 97.9 F Pulse Rate 76 Pulse Rate [ 76 Left Brachial] Respiratory 20 Rate Blood Pressure 113/68 Blood Pressure 113/68 [Left Arm] O2 Sat by Pulse 100 Oximetry General appearance: Present: no acute distress - EENT Eyes: EOM intact ENT: hearing intact - Neck Neck: supple, normal ROM - Respiratory Respiratory effort: normal Respiratory: bilateral: CTA - Cardiovascular Rhythm: regular Heart Sounds: Present: S1 & S2 Extremities: No edema Extremity abnormal: other (ho to right residual limb) - Gastrointestinal General gastrointestinal: Present: soft, non-tender, non-distended, normal bowel sounds - Neurologic Neurologic: CNII-XII intact, moves all extremities - Psychiatric Psychiatric: appropriate mood/affect, cooperative - Allied health notes Allied health notes reviewed: PT (supervision for transfers and gait, up to 150 feet), OT (Lindsay for ADLs) - Labs CBC & Chem 7: 06/04/16 04:17 06/01/16 04:43
--- NOTE | 2016-06-07 15:15 | Progress Note ---
Assessment and Plan PVD s/p right AKA on xarelto Boderline low BP -pt asymptomatic Hx of Ischemic Cardiomyopathy Hx of CAD per patient Presence of an AICD Anemia Continue afterload reduction and beta eben therapy for his CAD and ischemic cardiomyopathy with holding parameters. Subjective Date of service: 06/07/16 Principal diagnosis: right AKA Interval history: Patient has no cardiac complaints. Objective Vital Signs Temp Pulse Pulse Pulse Resp BP BP 06/07/16 09:01 76 113/68 06/07/16 07:59 97.9 F 76 20 113/68 06/06/16 19:00 97.1 F L 88 20 116/70 06/06/16 16:30 98.2 F 86 18 110/72 Pulse Ox 06/07/16 09:01 06/07/16 07:59 100 06/06/16 19:00 99 06/06/16 16:30 100 - Physical Examination General: No Apparent Distress HEENT: Positive: PERRL Neck: Positive: trachea midline Cardiac: Positive: Reg Rate and Rhythm Lungs: Positive: Decreased Breath Sounds Neuro: Positive: Grossly Intact Extremities: Present: Other (right AKA). Absent: edema
[2016-06-07] MEDS: SENOKOT PO SCH ×2 (21:38→21:39)
[2016-06-08] MEDS: NORCO 10/325 PO PRN (04:14)
[2016-06-08] MEDS: LASIX PO SCH (07:03)
[2016-06-08] MEDS: TRENTAL PO SCH ×3 (07:03→22:08)
[2016-06-08] MEDS: ZESTRIL PO SCH (08:00)
[2016-06-08] MEDS: K-DUR PO SCH (09:56)
[2016-06-08] MEDS: RANEXA ER PO SCH ×2 (09:56→22:08)
[2016-06-08] MEDS: XARELTO PO SCH (09:56)
[2016-06-08] MEDS: EFFIENT PO SCH (09:57)
[2016-06-08] MEDS: COREG PO SCH ×2 (09:58→22:09)
[2016-06-08] MEDS: COLACE PO SCH ×2 (10:03→22:09)
--- NOTE | 2016-06-08 12:12 | Progress Note ---
Assessment and Plan PVD s/p right AKA on xarelto Boderline low BP -pt asymptomatic Hx of Ischemic Cardiomyopathy Hx of CAD per patient Presence of an AICD Anemia Continue afterload reduction and beta eben therapy for his CAD and ischemic cardiomyopathy with holding parameters. Subjective Date of service: 06/08/16 Principal diagnosis: right AKA Interval history: Patient has no cardiac complaints. Objective Vital Signs Temp Pulse Pulse Pulse Resp BP BP 06/08/16 09:58 82 105/63 06/08/16 08:25 97.4 F L 82 18 105/63 06/07/16 21:41 80 121/78 06/07/16 20:00 98.5 F 80 18 121/78 06/07/16 15:58 97.5 F L 76 20 119/71 Pulse Ox 06/08/16 09:58 06/08/16 08:25 100 06/07/16 21:41 06/07/16 20:00 100 06/07/16 15:58 100 - Physical Examination General: No Apparent Distress HEENT: Positive: PERRL Neck: Positive: trachea midline Cardiac: Positive: Reg Rate and Rhythm Lungs: Positive: Decreased Breath Sounds Extremities: Present: Other (right AKA). Absent: edema
--- NOTE | 2016-06-08 13:39 | Progress Note ---
Assessment and Plan 55 y.o. male s/p right AKA - s/p right AKA- continue prn [place], no increase in requirement after MS Contin discontinued; only receiving 1-2 doses/day - unsteady gait- progressed to supervision for gait; Lindsay for transfers; ambulated 60 feet on admission evaluation, now ambulating 340 feet - CAD/CHF- BP stable - DVT px- on Xarelto per Vascular - tentative d/c home on 06/11; Family training with nephew on tomorrow - Patient Problems (1) History of right above knee amputation Current Visit: Yes Status: Acute (2) Peripheral vascular occlusive disease Current Visit: Yes Status: Acute (3) CAD (coronary artery disease) Current Visit: Yes Status: Acute Qualifiers: Coronary Disease-Associated Artery/Lesion type: [place] artery [place] vs. transplanted heart: [place] heart Associated angina: with stable angina Qualified Code(s): I25.118 - Atherosclerotic heart disease of [place] coronary artery with other forms of angina pectoris (4) Systolic heart failure Current Visit: Yes Status: Acute Qualifiers: Heart failure chronicity: acute on chronic Qualified Code(s): I50.23 - Acute on chronic systolic (congestive) heart failure (5) Unsteady gait Current Visit: Yes Status: Acute Subjective Date of service: 06/08/16 Principal diagnosis: right AKA Interval history: Pt seen with PT this AM, F/U IPR course s/p right AKA. Pain remains with good control; no acute events overnight Objective - Constitutional Vitals: Vital Signs - 12hr 06/08/16 06/08/16 08:25 09:58 Temperature 97.4 F L Pulse Rate 82 Pulse Rate [ 82 Apical] Respiratory 18 Rate Blood Pressure 105/63 Blood Pressure 105/63 [Left Arm] O2 Sat by Pulse 100 Oximetry General appearance: Present: no acute distress - EENT Eyes: EOM intact ENT: hearing intact - Neck Neck: supple, normal ROM - Respiratory Respiratory effort: normal - Gastrointestinal General gastrointestinal: Present: non-distended - Neurologic Neurologic: CNII-XII intact, moves all extremities - Psychiatric Psychiatric: appropriate mood/affect, cooperative - Allied health notes Allied health notes reviewed: PT (supervision for gait; Lindsay for transfers), ST (memory/cognitive deficits noted), OT (SBA for sit-stand transfers; Lindsay for toileting) - Labs CBC & Chem 7: 06/04/16 04:17 06/01/16 04:43
[2016-06-08] MEDS: SENOKOT PO SCH (22:32)
[2016-06-09] MEDS: RANEXA ER PO SCH ×2 (00:10→10:13)
[2016-06-09] MEDS: TRENTAL PO SCH ×3 (05:58→22:45)
[2016-06-09] MEDS: LASIX PO SCH (05:58)
[2016-06-09] MEDS: EFFIENT PO SCH (10:11)
[2016-06-09] MEDS: COREG PO SCH ×2 (10:12→23:00)
[2016-06-09] MEDS: XARELTO PO SCH (10:13)
[2016-06-09] MEDS: COLACE PO SCH ×2 (10:15→22:00)
[2016-06-09] MEDS: K-DUR PO SCH (10:15)
[2016-06-09] MEDS: ZESTRIL PO SCH (10:17)
--- NOTE | 2016-06-09 13:52 | Progress Note ---
Assessment and Plan 55 y.o. male s/p right AKA - s/p right AKA- incision line healing well; continue prn [place] - unsteady gait- supervision with gait; Lindsay for transfers - CAD/CHF- BP remains stable - DVT px- on Xarelto per Vascular - dispo- tentative d/c home on 06/11 - Patient Problems (1) History of right above knee amputation Current Visit: Yes Status: Acute (2) Peripheral vascular occlusive disease Current Visit: Yes Status: Acute (3) CAD (coronary artery disease) Current Visit: Yes Status: Acute Qualifiers: Coronary Disease-Associated Artery/Lesion type: [place] artery [place] vs. transplanted heart: [place] heart Associated angina: with stable angina Qualified Code(s): I25.118 - Atherosclerotic heart disease of [place] coronary artery with other forms of angina pectoris (4) Systolic heart failure Current Visit: Yes Status: Acute Qualifiers: Heart failure chronicity: acute on chronic Qualified Code(s): I50.23 - Acute on chronic systolic (congestive) heart failure (5) Unsteady gait Current Visit: Yes Status: Acute Subjective Date of service: 06/09/16 Principal diagnosis: right AKA Interval history: Pt seen in room this AM, F/U IPR course s/p right AKA. no new complaints; pain remains controlled, +BM Objective - Constitutional Vitals: Vital Signs - 12hr 06/09/16 06/09/16 08:25 10:12 Temperature 96.6 F L Pulse Rate 82 Pulse Rate [ 82 Apical] Respiratory 20 Rate Blood Pressure 111/68 Blood Pressure 111/68 [Left Arm] O2 Sat by Pulse 100 Oximetry General appearance: Present: no acute distress, other (sitting up in bed) - EENT Eyes: EOM intact ENT: hearing intact - Neck Neck: supple, normal ROM - Respiratory Respiratory effort: normal Extremity abnormal: other (RLE- minimal darkening noted at mid-incision line; remains intact, ho in place without any drainage) - Neurologic Neurologic: CNII-XII intact, moves all extremities - Psychiatric Psychiatric: appropriate mood/affect, cooperative - Allied health notes Allied health notes reviewed: PT (Lindsay for transfers; close supervision for gait ), OT (SBA for shower transfers) - Labs CBC & Chem 7: 06/04/16 04:17 06/01/16 04:43
--- NOTE | 2016-06-09 14:52 | Progress Note ---
Assessment and Plan PVD s/p right AKA on xarelto Boderline low BP -pt asymptomatic Hx of Ischemic Cardiomyopathy Hx of CAD per patient Presence of an AICD Anemia Continue afterload reduction and beta eben therapy for his CAD and ischemic cardiomyopathy with holding parameters. Subjective Date of service: 06/09/16 Principal diagnosis: right AKA Interval history: Patient has no cardiac complaints. Family at bedside. Objective Vital Signs Temp Pulse Pulse Pulse Resp BP BP 06/09/16 10:12 82 111/68 06/09/16 08:25 96.6 F L 82 20 111/68 06/08/16 22:09 80 107/67 06/08/16 20:00 97.6 F 80 18 105/70 06/08/16 16:25 97.5 F L 82 20 115/75 Pulse Ox 06/09/16 10:12 06/09/16 08:25 100 06/08/16 22:09 06/08/16 20:00 06/08/16 16:25 98 - Physical Examination General: No Apparent Distress HEENT: Positive: PERRL Neck: Positive: trachea midline Cardiac: Positive: Reg Rate and Rhythm Lungs: Positive: Decreased Breath Sounds Extremities: Present: Other (right AKA). Absent: edema
[2016-06-09] MEDS: SENOKOT PO SCH (22:00)
[2016-06-10] MEDS: TRENTAL PO SCH ×3 (05:52→21:57)
[2016-06-10] MEDS: LASIX PO SCH (05:52)
[2016-06-10] MEDS: NORCO 10/325 PO PRN (05:52)
[2016-06-10] MEDS: COLACE PO SCH ×2 (08:44→21:57)
[2016-06-10] MEDS: RANEXA ER PO SCH ×2 (08:45→21:56)
[2016-06-10] MEDS: K-DUR PO SCH (08:45)
[2016-06-10] MEDS: XARELTO PO SCH (08:47)
[2016-06-10] MEDS: ZESTRIL PO SCH (08:49)
[2016-06-10] MEDS: COREG PO SCH ×2 (08:51→21:58)
[2016-06-10] MEDS: EFFIENT PO SCH (09:05)
--- NOTE | 2016-06-10 10:08 | Progress Note ---
Addendum entered and electronically signed by ROMAN SOTO MD 06/10/16 14:06 : Medical therapy for coronary artery disease, ischemic cardiomyopathy and chronic systolic heart failure. Original Note: Assessment and Plan PVD s/p right AKA on xarelto Boderline low BP -pt asymptomatic Hx of Ischemic Cardiomyopathy Hx of CAD per patient Presence of an AICD Anemia Continue afterload reduction and beta eben therapy for his CAD and ischemic cardiomyopathy with holding parameters. Subjective Date of service: 06/10/16 Principal diagnosis: right AKA Interval history: Patient has no cardiac complaints. Objective Vital Signs Temp Pulse Pulse Pulse Pulse Resp BP 06/10/16 08:51 88 110/70 06/10/16 08:49 88 110/70 06/10/16 08:00 99.0 F 88 18 06/10/16 06:00 97.6 F 81 81 81 17 06/09/16 23:00 88 117/75 06/09/16 22:00 88 88 88 17 06/09/16 16:25 98.7 F 82 18 06/09/16 10:12 82 111/68 BP Pulse Ox 06/10/16 08:51 06/10/16 08:49 06/10/16 08:00 110/70 100 06/10/16 06:00 126/70 100 06/09/16 23:00 06/09/16 22:00 99 06/09/16 16:25 122/75 100 06/09/16 10:12 - Physical Examination General: No Apparent Distress HEENT: Positive: PERRL Neck: Positive: trachea midline Cardiac: Positive: Reg Rate and Rhythm Lungs: Positive: Decreased Breath Sounds Extremities: Present: Other (right AKA). Absent: edema
--- NOTE | 2016-06-10 14:38 | Progress Note ---
Assessment and Plan 55 y.o. male s/p right AKA - s/p right AKA- prn [place]; pain well controlled - unsteady gait- progressed to [place] for gait - CAD/CHF- BP remains stable - DVT px- on Xarelto per Vascular - team conference held on today- pt is [facility] for ADLs except close SBA for shower transfers; [facility] for bed mobility, transfers, gait, ambulating 340 feet with RW; also [place] for stairs, car transfers, and curb/ramp; modA for problem solving. Barriers- decreased safety awareness; falls risk due to safety. Pt is for d/c home on tomorrow. - Patient Problems (1) History of right above knee amputation Current Visit: Yes Status: Acute (2) Peripheral vascular occlusive disease Current Visit: Yes Status: Acute (3) CAD (coronary artery disease) Current Visit: Yes Status: Acute Qualifiers: Coronary Disease-Associated Artery/Lesion type: [place] artery [place] vs. transplanted heart: [place] heart Associated angina: with stable angina Qualified Code(s): I25.118 - Atherosclerotic heart disease of [place] coronary artery with other forms of angina pectoris (4) Systolic heart failure Current Visit: Yes Status: Acute Qualifiers: Heart failure chronicity: acute on chronic Qualified Code(s): I50.23 - Acute on chronic systolic (congestive) heart failure (5) Unsteady gait Current Visit: Yes Status: Acute Subjective Date of service: 06/10/16 Principal diagnosis: right AKA Interval history: Pt seen in room this AM, F/U IPR course s/p right AKA. Pt is without any new complaints on today. Excited to go home on tomorrow Objective - Constitutional Vitals: Vital Signs - 12hr 06/10/16 06/10/16 06/10/16 06:00 08:00 08:49 Temperature 97.6 F 99.0 F Pulse Rate 88 Pulse Rate [ 81 Apical] Pulse Rate [ 81 88 Left Brachial] Pulse Rate [ 81 Right Radial] Respiratory 17 18 Rate Blood Pressure 110/70 Blood Pressure 126/70 110/70 [Left Arm] O2 Sat by Pulse 100 100 Oximetry 06/10/16 08:51 Temperature Pulse Rate 88 Pulse Rate [ Apical] Pulse Rate [ Left Brachial] Pulse Rate [ Right Radial] Respiratory Rate Blood Pressure 110/70 Blood Pressure [Left Arm] O2 Sat by Pulse Oximetry General appearance: Present: no acute distress, other (sitting up in WC) - EENT Eyes: EOM intact ENT: hearing intact - Neck Neck: supple, normal ROM - Respiratory Respiratory effort: normal - Gastrointestinal General gastrointestinal: Present: soft, non-tender - Neurologic Neurologic: CNII-XII intact - Psychiatric Psychiatric: appropriate mood/affect, cooperative - Labs CBC & Chem 7: 06/04/16 04:17 06/01/16 04:43
[2016-06-10] MEDS: SENOKOT PO SCH (21:57)
[2016-06-11] MEDS: TRENTAL PO SCH ×2 (06:16→13:41)
[2016-06-11] MEDS: LASIX PO SCH (06:16)
[2016-06-11 08:49] VITALS: BP 105/69
[2016-06-11] MEDS: XARELTO PO SCH (08:53)
[2016-06-11] MEDS: EFFIENT PO SCH (08:54)
[2016-06-11] MEDS: K-DUR PO SCH (08:54)
[2016-06-11] MEDS: COREG PO SCH (08:55)
[2016-06-11] MEDS: COLACE PO SCH (08:56)
[2016-06-11] MEDS: RANEXA ER PO SCH (08:58)
[2016-06-11] MEDS: ZESTRIL PO SCH (08:58)
--- NOTE | 2016-06-11 10:26 | Progress Note ---
Assessment and Plan PVD s/p right AKA on xarelto Boderline low BP -pt asymptomatic Hx of Ischemic Cardiomyopathy Hx of CAD per patient Presence of an AICD Anemia Continue afterload reduction and beta eben therapy for his CAD and ischemic cardiomyopathy with holding parameters. F/U with primary life skills coach 1-2 wks of discharge. Subjective Date of service: 06/11/16 Principal diagnosis: right AKA Interval history: Patient has no cardiac complaints. Undergoing therapy. For planned discharge home today. Objective Vital Signs Temp Pulse Pulse Pulse Resp BP BP 06/11/16 08:55 84 105/69 06/11/16 08:45 98.7 F 84 18 105/69 06/10/16 22:00 06/10/16 21:58 84 130/80 06/10/16 21:00 98.0 F 84 18 130/80 06/10/16 16:00 98.5 F 76 18 107/60 Pulse Ox 06/11/16 08:55 06/11/16 08:45 06/10/16 22:00 100 06/10/16 21:58 06/10/16 21:00 98 06/10/16 16:00 100 - Physical Examination General: No Apparent Distress HEENT: Positive: PERRL Cardiac: Positive: Reg Rate and Rhythm Skin: Positive: Clear Extremities: Present: Other (right AKA). Absent: edema
--- NOTE | 2016-06-11 12:43 | Discharge Summary ---
Providers - Providers Date of Admission: 05/31/16 16:45 Date of discharge: 06/11/16 Attending physician: MATT BUCIO 05/31/16 19:09 Occupational Therapy Evaluate and Treat [CONS] Routine Comment: Reason For Exam: s/p AKA Physical Therapy Evaluation and Treat [CONS] Routine Comment: Reason For Exam: s/p AKA 06/01/16 09:05 Consult to Physician [CONS] Routine Consulting Provider: [facility] PSusiCSusi Reason For Exam: med mgmt, CHF, hypotension Place consult to:: [facility] Notified:: Jeronimo Phone number called:: [phone] Was contact made?: Yes If yes, spoke with:: Jeronimo Time called:: 09:25 06/01/16 13:13 Consult to Wound/ET Nurse [CONS] Routine Reason For Exam: wound eval 06/03/16 12:23 Consult to Director Biomedical Engineering [CONS] Routine Reason For Exam: JUDI walker to see Pt and discuss prosthetics 06/03/16 15:04 Speech Therapy Evaluation and Treat [CONS] Routine Reason For Exam: cognitive evaluation Primary care physician: Dr. Ashlyn Jones Hospitalization Reason for admission: right AKA Condition: Stable Hospital course: 55 y.o. male who presented to [facility] secondary to right leg pain. Pt with recent history of removal of arterial clot in right leg 4 days prior to presentation to ED. Pt was sent for CT during initial ED work-up and became short of breath requiring BiPAP, ICU admission; noted pulmonary edema on CXR. CT angio showed occlusion of proximal left anterior tibial artery with proximal occlusion of the left peroneal artery; 60% stenosis of common femoral artery, 50 % stenosis of left popliteal artery. Pt was recommended for right AKA (05/26/2016 ) due to right arterial occlusion with dry gangrene. Acute care course notable post-op for ongoing management of respiratory failure, post-op blood loss anemia , acute on chronic systolic heart failure, CAD, hypertension. Pt was seen and evaluated by therapies and noted to have functional decline with self cares and mobility; transferred to [facility] for aggressive therapies and ongoing medical management. Pt tolerated IRU course without difficulty. Cardiology consulted for medication modification due to intermittent hypotension; resolved at discharge. Pain remain well controlled; tolerated weaning off of MS Contin. Functionally, pt showed good progress during course. On initial evaluation, pt required [facility] to modA for ADLs; SBA/Supervision for bed mobility; Chace/CGA for transfers and gait, 60 feet with RW. At the time of discharge, pt has progressed to [facility] for transfers, ambulating 340 feet x2 with RW; [place] for ADLs , except SBA for shower transfers. Pt has completed family training and is stable for d/c home. >30 mins spent discharge process, medication reconciliation, pt education on follow-up care Disposition: DC/TX HOME UNDER HOME HEALTH - Discharge Diagnoses (1) History of right above knee amputation Status: Acute (2) Peripheral vascular occlusive disease Status: Acute (3) CAD (coronary artery disease) Status: Acute Qualifiers: Coronary Disease-Associated Artery/Lesion type: [place] artery [place] vs. transplanted heart: [place] heart Associated angina: with stable angina Qualified Code(s): I25.118 - Atherosclerotic heart disease of [place] coronary artery with other forms of angina pectoris (4) Systolic heart failure Status: Acute Qualifiers: Heart failure chronicity: acute on chronic Qualified Code(s): I50.23 - Acute on chronic systolic (congestive) heart failure (5) Unsteady gait Status: Acute Core Measure Documentation - Palliative Care Palliative Care/ Comfort Measures: Not Applicable - Core Measures Any of the following diagnoses?: heart failure - Heart Failure Discharge Requirements PAUL/ARB for LVSD if EF <40%: Yes Beta eben at discharge: Yes Exam - Constitutional Vitals: Temp Pulse Resp BP Pulse Ox 98.7 F 84 18 105/69 100 06/11/16 08:45 06/11/16 08:55 06/11/16 08:45 06/11/16 08:55 06/10/16 22:00 General appearance: Present: no acute distress - EENT Eyes: Present: EOM intact ENT: hearing intact - Neck Neck: Present: supple, normal ROM - Respiratory Respiratory effort: normal - Extremities Extremity abnormal: other (ho intact to right residual limb) - Abdominal General gastrointestinal: Present: soft, non-tender - Psychiatric Psychiatric: appropriate mood/affect, cooperative - Neurologic Neurologic: CNII-XII intact, moves all extremities Plan Activity: no driving until cleared by PCP, fall precautions Weight Bearing Status: Weight Bear as Tolerated Diet: low cholesterol, low salt Wound: keep clean and dry Special Instructions: other ([facility] for home PT/OT) Durable Medical Equipment Needed Upon Discharge: Walker-Rolling, Wheelchair, Bedside Commode, other ([facility]) Additional Instructions: PCP in 3-5 days; outpt Cardiology in 1-2 weeks Follow up with: THAO OJEDA MD [Staff Physician] - 7 Days Prescriptions: AtorvaSTATin [Lipitor] 20 mg PO QHS #30 tablet Carvedilol [Coreg] 6.25 mg PO BID #60 tablet Prasugrel [Effient] 10 mg PO QDAY #30 tablet Potassium Chloride [K-Dur] 20 meq PO QDAY #30 tablet Furosemide [Lasix TAB] 40 mg PO QDAY@0600 #30 tablet HYDROcodone/APAP 10-325 [Nemo 10-325 mg TAB] 1 each PO Q6H PRN #30 tablet PRN Reason: Pain, Moderate (4-6) Ranolazine ER [Ranexa ER] 1,000 mg PO BID #120 tablet Pentoxifylline [TRENtal] 400 mg PO Q8HR #90 tablet Rivaroxaban [Xarelto] 20 mg PO QDDIAB #30 tablet Lisinopril [Zestril TAB] 2.5 mg PO QDAY #30 tablet
== END 2016-06-11 15:43 | disposition home health service (06) | DRG 299 ==
LOC: 3B 16:45
PROVIDERS: ADMIT Family Medicine; ATTEND Family Medicine
DX: I70.268 Atherosclerosis of native arteries of extremities with gangrene, other extremity (principal); J96.90 Respiratory failure, unspecified, unspecified whether with hypoxia or hypercapnia; I50.23 Acute on chronic systolic (congestive) heart failure; J81.1 Chronic pulmonary edema; D62 Acute posthemorrhagic anemia; I70.92 Chronic total occlusion of artery of the extremities; G54.6 Phantom limb syndrome with pain; D72.829 Elevated white blood cell count, unspecified; I11.0 Hypertensive heart disease with heart failure; E78.5 Hyperlipidemia, unspecified; Z60.2 Problems related to living alone; F17.210 Nicotine dependence, cigarettes, uncomplicated; I25.5 Ischemic cardiomyopathy; I95.1 Orthostatic hypotension; K59.01 Slow transit constipation; R26.81 Unsteadiness on feet; I25.118 Atherosclerotic heart disease of native coronary artery with other forms of angina pectoris; Z98.890 Other specified postprocedural states; I25.2 Old myocardial infarction; Z89.611 Acquired absence of right leg above knee; Z95.810 Presence of automatic (implantable) cardiac defibrillator; Z79.01 Long term (current) use of anticoagulants; Z83.3 Family history of diabetes mellitus; Z82.49 Family history of ischemic heart disease and other diseases of the circulatory system
CPT/HCPCS: 36415; 80053; 85025; 85027; A9270-GY